=== PATIENT | male | born 1990 | race Caucasian/White ===

== ENCOUNTER 2019-10-09 17:40 | Emergency (ER) | payer OTHER ==
[~2019-10-09] VITALS: Ht 172.7 cm; Wt 81.7 kg
[2019-10-09] MEDS ORDERED: DOXYCYCLINE 10100 MG PO (20:24)
[2019-10-09 20:56] VITALS: BP 153/63
== END 2019-10-09 20:57 | disposition home or self-care (01) ==
LOC: ER 17:40
DX: S61.021A Laceration with foreign body of right thumb without damage to nail, initial encounter (principal); I10 Essential (primary) hypertension; F17.210 Nicotine dependence, cigarettes, uncomplicated; W26.0XXA Contact with knife, initial encounter; Y92.89 Other specified places as the place of occurrence of the external cause; Y93.89 Activity, other specified; Y99.8 Other external cause status